=== PATIENT | female | born 2000 | race Caucasian/White ===

== ENCOUNTER 2025-03-25 14:20 | Emergency (ER) | payer BC, SELFPAY ==
[2025-03-25 14:27] VITALS: BP 153/88
[2025-03-25 15:15] LABS: ALT (SGPT) 13 U/L (0-35); AST (SGOT) 22 U/L (14-36); Albumin 4.6 g/dl (3.5-5.0); Alkaline Phosphatase 62 U/L (38-126); Blood Urea Nitrogen 16 mg/dl (7-17); Calcium 10.3 mg/dl (8.4-10.2); Carbon Dioxide 22 mmol/L (22-30); Chloride 104 mmol/L (98-107); Glucose 118 mg/dl (70-99); Potassium 4.3 mmol/L (3.5-5.1); Sodium 135 mmol/L (135-145); Total Protein 7.3 g/dl (6.3-8.2); eGFR > 60.00
[2025-03-25 16:00] LABS: Hematocrit 41.5 % (37.0-47.0); Hemoglobin 14.2 g/dL (12.0-16.0); Mean Corp Hgb Conc. 34.2 g/dL (33.0-37.0); Mean Corpuscular Volume 84.7 fL (81.0-99.0); Nucleated Red Blood Cells % 0 %; Platelet Count 242 10^3/uL (130-400); Red Cell Dist. Width 12.1 % (11.5-14.5)
[2025-03-25 17:24] VITALS: BP 114/85
--- NOTE | 2025-03-25 18:56 | ED.GENMED ---
History of Present Illness
General
Chief Complaint: Breathing Problem
Source: patient
Exam Limitations: none
Time Seen by Provider: 03/25/25 16:18
Nursing documentation reviewed up to this point in time: agreed with
History of Present Illness
History of Present Illness:
Patient to ED with complaint o SOB. States symptoms started suddenly while at work today. Reports feeling faint. Denies fever/chills, recent illness. No cough. Denies history of similar symptoms. Brought to ED by father for eval.
Past History
Past History
ED Past Medical History: None
ED Past Surgical History: None
Review of Systems
Review of Systems
Allergies reviewed?: Yes
All Other Systems: ROS reviewed and negative except as documented in HPI and ROS
Constitutional: Reports no symptoms
EENT: Reports no symptoms
Respiratory: Reports trouble breathing
Cardiac: Reports no symptoms
ABD/GI: Reports no symptoms
: Reports no symptoms
Musculoskeletal: Reports no symptoms
Skin: Reports no symptoms
Neurological: Reports no symptoms
Psychiatric: Reports no symptoms
Phy Exam
General Physical Exam
General Presentation: well appearing and no apparent distress
General age: appears stated age
General Skin: warm and dry
General Habitus: normal
General Mental: alert
Cardiovascular Exam
Cardiovascular Exam: regular rate/rhythm and no edema
Pulmonary Exam
Pulmonary Exam: lungs clear and no respiratory distress
Musculoskeletal Exam
Musculoskeletal Exam: full ROM, neuro vasc intact and other (No calf pain redness swelling.)
Skin Exam
Skin Exam: normal color, warm/dry and no rash
Psychiatric Exam
Psychiatric Exam: normal mood/affect
Course
Orders/Labs/Results
Orders:
Orders
03/25/25 14:32
Electrocardiogram (*1) Urgent
Reason for Study: Shortness of Breath
03/25/25 14:33
EKG- Treatment ONCE
CR Chest - 2 Views Urgent
Comment:
Reason For Exam: SOB
03/25/25 14:44
Complete Blood Count/With Diff Urgent
Comprehensive Metabolic Panel Urgent
Abnormal Lab Results
03/25/25
14:44
WBC 10.9 H 10^3/uL
(4.8-10.8)
MPV 10.9 H fL
(7.4-10.4)
Absolute Neuts (auto) 7.8 H 10^3/uL
(1.4-6.5)
Glucose 118 H mg/dl
(70-99)
Calcium 10.3 H mg/dl
(8.4-10.2)
03/25/25 14:44
03/25/25 14:44
Vital Signs
Initial and Last Documented VS:
Initial Vital Signs
Temp Pulse Resp BP Pulse Ox
98.3 F 92 20 153/88 100
03/25/25 14:27 03/25/25 14:27 03/25/25 14:27 03/25/25 14:27 03/25/25 14:27
Last Documented Vital Signs
Temp Pulse Resp BP Pulse Ox
98.3 F 84 16 114/85 99
03/25/25 14:27 03/25/25 17:24 03/25/25 17:24 03/25/25 17:24 03/25/25 18:58
*Radiology
Radiology exam reviewed: radiology read reviewed
*Pulse Oximetry
SaO2: 99
Oxygen Mode of Delivery: Room air
Patient hypoxic: no
*Critical Care Note
Total Time (30-74mins, 75-104mins- exclusive of procedures): Not Applicable
Update Note
Update Note:
Patient to ED with complaint of sudden onset of SOB. States she felt like she could not take a deep breath. VSS, she remains afebrile. Pulse ox 99% RA. EKG NSR LCTA. Labs, CXR unremarkable. No calf pain, tenderness, swelling. No history of
DVT. Currently comfortable. No findings to explain her symptoms. Will discharge home and she will follow up with PCP. Given instrutions on s/s to return to ED and she is agreeable plan.
ED Attending Note
-
Portions of this chart may have been created with voice recognition software.� Occasional wrong word or��sound alike� substitutions may have occurred due to the inherent limitations of voice recognition software.
Discharge Plan
Departure
Patient Disposition: Home (Routine Discharge)
Date of Disposition: 03/25/25
Time of Disposition: 17:24
Patient with high blood pressure during this ER visit?: No
Condition: Good
Covid-19: Not Applicable
Discharge Problem:
Dyspnea
Instructions: Shortness of Breath (Dyspnea) (DC)
Referrals:
Sonia Nielsen PA-C [Family Provider, Internal Medicine] - Tomorrow
Interventions
Interventions:
*Risk Screen - Suicide Last Done: 03/25/25 14:32
*Neglect/Abuse Screening Last Done: 03/25/25 14:32
*Nursing Disposition Last Done: 03/25/25 17:27
ED- Cardiac Assessment Last Done: 03/25/25 16:15
ED- Pulmonary Assessment Last Done: 03/25/25 16:15
Discharge Date and Time
Discharge Date/Time: 03/25/25 17:27
Print Language: [id number]
== END 2025-03-25 17:27 | disposition home or self-care (01) ==
LOC: EMR 14:20
PROVIDERS: EMERGENCY PHYSICIAN Emergency Medicine; FAMILY PHYSICIAN Physician Assistant Medical
DX: R06.00 Dyspnea, unspecified (principal)
CPT/HCPCS: 99283; 71046; 80053; 85025; 93005